=== PATIENT | female | born 1980 | race Caucasian/White ===

== ENCOUNTER → 2016-07-16 | Outpatient (CLI) | payer BC ==
[~2016-07-16] MED LIST: CHOLCAP5 PO; CYCL10TA6 PO; LACT1CAP6 PO; LEVO112T2 PO; LEVO125T5 PO; METH4PAK PO; OMEG10007 PO; VALA500T60 PO
== END | disposition home or self-care (01) ==
LOC: C.LABSPEC 13:51
PROVIDERS: ATTEND Physician Assistant
DX: L29.8 Other pruritus (principal)

== ENCOUNTER 2016-10-19 23:52 | Emergency (ER) | payer BC ==
[~2016-10-19] VITALS: Ht 162.6 cm; Wt 75.9 kg
[~2016-10-19 23:52] MED LIST changes: -CYCL10TA6 PO; -LEVO112T2 PO; +LEVO125T4 PO; -LEVO125T5 PO; -METH4PAK PO
[2016-10-19 23:56] VITALS: Ht 162.6 cm; Wt 75.9 kg
--- NOTE | 2016-10-20 00:17 | EMERGENCY ROOM VISIT NOTE ---
History Report prepared by Arabellaibbibi: Maribel Bruce Under the Supervision of: Dr. Ingris Sherwood D.O. First contact with patient: 00:00 Chief Complaint: CARDIAC ASSESSMENT Stated Complaint: CHEST PAIN, DIZZINESS History of Present Illness The patient is a 35 year old female who presents to the Emergency Room with complaints of intermittent chest pain that started approximately 90 minutes prior to arrival. She reports the pain woke her from sleep and rates her discomfort as a 2/10. She notes she has been feeling "off" and generally fatigued for the past few days. She states she started experiencing intermittent , infrequent chest pain in May 2016, and then experienced the chest pain again in August 2016. The pain would last for approximately 2 hours then subside. She denies any recent increased stress in her life. 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 She denies eating anything unusual recently. She notes her father underwent quadruple bypass surgery when he was 50 years old. The patient also admits to intermittent episodes of dizziness and back pain that radiates up into her neck. She has undergone a breast reduction surgery in the past and states back pain is unusual for her after undergoing the surgery. The dizziness can be so severe that it makes her feel like she is going to "pass out", but she states she has never experienced any syncopal episodes. The patient denies any history of anxiety. She also denies any abdominal pain, leg cramping or swelling. Source of History: patient Onset: 90 minutes PLAN NURSE Position: chest Symptom Intensity: 2/10 Timing: intermittent Associated Symptoms: + neck pain, + back pain, + fatigue, No abdominal pain Review of Systems See HPI for pertinent positives & negatives. A total of 10 systems reviewed and were otherwise negative. Past Medical & Surgical Medical Problems: (1) Bleeding from vagina Surgical Problems: (1) History of bilateral breast reduction surgery Family History CHF (congestive heart failure) Heart disease Social History Smoking Status: Never Smoker Smokeless Tobacco Use: No Alcohol Use: none Drug Use: none Marital Status: Housing Status: lives with family Occupation Status: employed Current/Historical Medications Scheduled Cholecalciferol (Vitamin D3), 5,000 INTER.UNIT PO DAILY Fish Oil ([place]-3), 1 CAP PO BID Levothyroxine Sodium (Synthroid), 112 MCG PO DAILY Valacyclovir (Valtrex), 500 MG PO DAILY Allergies Coded Allergies: Oxycodone (Verified Allergy, Unknown, 10/20/16) Codeine (Verified Adverse Reaction, Mild, NAUSEA, 10/20/16) Physical Exam Vital Signs Date Time Temp Pulse Resp B/P (MAP) Pulse Ox O2 Delivery O2 Flow Rate FiO2 10/20/16 02:58 77 18 108/63 97 10/20/16 02:00 73 18 114/73 97 Room Air 10/20/16 00:25 85 10/19/16 23:56 90 20 139/93 100 Room Air Physical Exam HEENT: Head - normocephalic and atraumatic Pupils are equal, round, and reactive to light. Extraocular eye muscles are intact, and sclera are anicteric. Nose - moist nasal mucosa without discharge. Mouth - moist buccal mucosa. Oropharynx is nonerythematous and there is no tonsillar exudate or edema noted. Neck: Supple; no JVD, nuchal rigidity, cervical lymphadenopathy. Heart: Regular rate and rhythm. There is a normal S1 and S2 with no murmurs, clicks, or gallops appreciated. Lungs: Clear to auscultation bilaterally with no wheezes, rales, or rhonchi. Abdomen: Soft, completely nontender, nondistended, with good bowel sounds. There are no palpable pulsatile masses or hepatosplenomegaly. There is no guarding, rigidity, or rebound noted. Extremities: No evidence of cyanosis, clubbing, or edema. There are easily palpable peripheral pulses. Skin: warm and dry with good turgor and no rashes. Medical Decision & Procedures ER Provider Diagnostic Interpretation: Radiology results as stated below per my review: CHEST X-RAY Narrow mediastinum, no pneumothorax, no pulmonary pathology. Laboratory Results 10/20/16 00:30 Red Blood Count 4.58, Mean Corpuscular Volume 85.2, Mean Corpuscular Hemoglobin 28.8, Mean Corpuscular Hemoglobin Concent 33.8, Mean Platelet Volume 10.0, Neutrophils (%) (Auto) 48.7, Lymphocytes (%) (Auto) 43.1, Monocytes (%) (Auto) 5.6, Eosinophils (%) (Auto) 2.1, Basophils (%) (Auto) 0.3, Neutrophils # (Auto) 4.31, Lymphocytes # (Auto) 3.83, Monocytes # (Auto) 0.50, Eosinophils # (Auto) 0.19, Basophils # (Auto) 0.03 10/20/16 00:30 Test 10/20/16 00:30 10/20/16 01:55 White Blood Count 8.88 K/uL (4.8-10.8) Red Blood Count 4.58 M/uL (4.2-5.4) Hemoglobin 13.2 g/dL (12.0-16.0) Hematocrit 39.0 % (37-47) Mean Corpuscular Volume 85.2 fL (80-100) Mean Corpuscular Hemoglobin 28.8 pg (25-34) Mean Corpuscular Hemoglobin Concent 33.8 g/dl (32-36) Platelet Count 262 K/uL (130-400) Mean Platelet Volume 10.0 fL (7.4-10.4) Neutrophils (%) (Auto) 48.7 % Lymphocytes (%) (Auto) 43.1 % Monocytes (%) (Auto) 5.6 % Eosinophils (%) (Auto) 2.1 % Basophils (%) (Auto) 0.3 % Neutrophils # (Auto) 4.31 K/uL (1.4-6.5) Lymphocytes # (Auto) 3.83 K/uL (1.2-3.4) Monocytes # (Auto) 0.50 K/uL (0.11-0.59) Eosinophils # (Auto) 0.19 K/uL (0-0.5) Basophils # (Auto) 0.03 K/uL (0-0.2) RDW Standard Deviation 40.3 fL (36.4-46.3) RDW Coefficient of Variation 13.0 % (11.5-14.5) Immature Granulocyte % (Auto) 0.2 % Immature Granulocyte # (Auto) 0.02 K/uL (0.00-0.02) Anion Gap 10.0 mmol/L (3-11) Est Creatinine Clear Calc Drug Dose 84.5 ml/min Estimated GFR () 93.4 Estimated GFR (Non- 80.6 BUN/Creatinine Ratio 14.7 (10-20) Calcium Level 8.7 mg/dl (8.5-10.1) Total Bilirubin 0.4 mg/dl (0.2-1) Aspartate Amino Transf (AST/SGOT) 17 U/L (15-37) Alanine Aminotransferase (ALT/SGPT) 26 U/L (12-78) Alkaline Phosphatase 66 U/L (45-117) Total Creatine Kinase 92 U/L (26-192) Creatine Kinase MB < 0.5 ng/ml (0.5-3.6) Creatine Kinase MB Ratio (0-3.0) Total Protein 7.9 gm/dl (6.4-8.2) Albumin 4.2 gm/dl (3.4-5.0) Globulin 3.7 gm/dl (2.5-4.0) Albumin/Globulin Ratio 1.1 (0.9-2) Thyroid Stimulating Hormone (TSH) 4.200 uIu/ml (0.300-4.500) Troponin I < 0.015 ng/ml (0-0.045) Laboratory results per my review. ECG Indication: chest pain Rate (beats per minute): 80 Rhythm: normal sinus (normal sinus rhythm) Findings: no acute ischemic change, no ectopy ED Course 0005: Past medical records reviewed. The patient was evaluated in room B3B. A complete history and physical exam was performed. A twelve-lead EKG was obtained. An IV lock was initiated and labs are drones above. 0130: I reevaluated the patient. She is still symptom free. 0230: The patients second troponin was negative. 0237: I reevaluated the patient. She is feeling much better. I discussed her results and discharge instructions and she verbalized complete understanding and agreement. Medical Decision I attest that I have personally reviewed the patient's current medication list. Patient was found to have normal blood pressure on screening and does not require follow-up. The patient is a 35 year old female who presents to the ED with chest pain. The different diagnoses include: anxiety, GERD, PE, costochondritis, aortic dissection, pleurisy and cardiac ischemia. Lab results show: No leukocytosis, stable H&H, normal TSH and Glucose, normal renal function and LFT's, negative cardiac enzymes. This is a 35-year-old female patient who awoke from sleep with substernal chest pain and some left-sided neck pain. The patient does describe some upper back pain over the past couple weeks but has never had discomfort in her chest like this before. She has no associated shortness of breath or other GI symptoms. Shows a normal-appearing EKG and negative cardiac enzymes. Chest x-ray was unremarkable. We spent some time talking about the possible causes of her chest discomfort. I have asked her to follow up close with her PCP in the next 2 days at the chest discomfort or fatigue persists. If she develops worsening chest discomfort or shortness of breath, she was directed to return here to the ER. Impression Primary Impression: Substernal chest pain Scribe Attestation The scribe's documentation has been prepared under my direction and personally reviewed by me in its entirety. I confirm that the note above accurately reflects all work, treatment, procedures, and medical decision making performed by me. Departure Information Dispostion Home / Self-Care Referrals Abby Edmonds (PCP) Patient Instructions ED Chest Pain Atypical Unkn Cause, My [facility] Additional Instructions Rest. Limit strenuous activity. Return to the ER if you develop worsening chest pain or shortness of breath. Follow up with PCP if symptoms continue
[2016-10-20 00:38] LABS: BASO % 0.3 %; BASO ABS # 0.03 K/uL (0-0.2); COMPLETE YES; EOS % 2.1 %; IG% 0.2 %; LYMPH % 43.1 %; LYMPH ABS # 3.83 K/uL (1.2-3.4); MEAN CELL VOLUME 85.2 fL (80-100); MEAN CORPUSCULAR HEMOGLOBIN 28.8 pg (25-34); MEAN CORPUSCULAR HGB CONC 33.8 g/dl (32-36); MONO % 5.6 %; NEUT % 48.7 %; PLATELET COUNT 262 K/uL (130-400); RED BLOOD COUNT 4.58 M/uL (4.2-5.4); WHITE BLOOD COUNT 8.88 K/uL (4.8-10.8)
[2016-10-20] MEDS ORDERED: LEVO112T2 PO (00:47)
[2016-10-20 01:08] LABS: ALT/SGPT 26 U/L (12-78); AST/SGOT 17 U/L (15-37); BLOOD UREA NITROGEN 13 mg/dl (7-18); BUN/CREATININE RATIO 14.7 (10-20); CALCIUM 8.7 mg/dl (8.5-10.1); CARBON DIOXIDE 24 mmol/L (21-32); CHLORIDE 107 mmol/L (98-107); CREATININE 0.91 mg/dl (0.60-1.20); GLUCOSE 88 mg/dl (70-99); POTASSIUM 3.5 mmol/L (3.5-5.1); SODIUM 141 mmol/L (136-145)
[2016-10-20 01:19] LABS: ALB/GLOB RATIO 1.1 (0.9-2); ALKALINE PHOSPHATASE 66 U/L (45-117)
[2016-10-20 02:58] VITALS: BP 108/63; PULSE 77; O2SAT 97
--- NOTE | 2016-10-20 06:32 | DIAGNOSTIC IMAGING REPORT ---
CHEST 2 VIEWS ROUTINE CLINICAL HISTORY: chest pain and neck pain COMPARISON STUDY: 01/11/2014 FINDINGS: The bones soft tissues and hemidiaphragms are normal. The cardiomediastinal silhouette is normal. The lungs are clear. The pulmonary vasculature is normal. IMPRESSION: Negative chest. Electronically signed by: Nilton Moya M.D. 10/20/2016 6:31 AM Dictated Date/Time: 10/20/2016 6:30 AM
== END 2016-10-20 02:58 | disposition home or self-care (01) ==
LOC: C.EDB 23:53
DX: R07.2 Precordial pain (principal); Z82.49 Family history of ischemic heart disease and other diseases of the circulatory system; Z79.899 Other long term (current) drug therapy

== ENCOUNTER 2016-12-20 16:58 | Emergency (ER) | payer BC, OTHER ==
[~2016-12-20] VITALS: Ht 162.6 cm; Wt 65.6 kg
[~2016-12-20 16:58] MED LIST changes: -LACT1CAP6 PO; +LEVO112T2 PO; -LEVO125T4 PO
[2016-12-20 17:04] VITALS: TEMP 36.6; Ht 162.6 cm; Wt 65.6 kg
[2016-12-20] MEDS ORDERED: KETOROLAC TROMETHAMINE 60 MG/2 ML VIAL IM STA (17:29)
[2016-12-20] MEDS ORDERED: CYCLOBENZAPRINE HCL 10 MG TAB PO STA (17:29)
--- NOTE | 2016-12-20 18:02 | DIAGNOSTIC IMAGING REPORT ---
L-SPINE MIN 4 VIEWS ROUTINE HISTORY: Trauma. Pain. LEFT LOW BACK PAIN INTO LEFT LEG COMPARISON: None. FINDINGS: There is no fracture. No subluxation. Disc spaces are preserved. IMPRESSION: No fracture or subluxation within the lumbar spine. The above report was generated using voice recognition software. It may contain grammatical, syntax or spelling errors. Electronically signed by: Nilton Moya M.D. 12/20/2016 6:01 PM Dictated Date/Time: 12/20/2016 6:01 PM
[2016-12-20] MEDS ORDERED: METH4PAK PO (18:41)
[2016-12-20] MEDS ORDERED: CYCL10TA6 PO (18:41)
--- NOTE | 2016-12-20 18:42 | EMERGENCY ROOM VISIT NOTE ---
ED Visit Note First contact with patient: 17:11 CHIEF COMPLAINT: Low back pain 2 weeks HISTORY OF PRESENT ILLNESS: Patient is a 28 year-old white female who presents to the emergency department for evaluation of low back pain. She states her symptoms started about 2 weeks ago with mild, tolerable right sided low back pain. She then had a mechanical fall when she slipped on some of her daughter' s clothing, landing on her left hip and buttocks. She states that she developed a bruise on the lateral aspect of her hip, then subsequently developed some pain in her left low back. In the last week, the left low back pain has worsened. She describes pain in her left low back that wraps around to her left thigh. She occasionally noticed bilateral groin pain. Initially the pain was better when she was standing upright and walking, and worse when she flexed, but in the last couple of days she has noticed that any type of movement has become more painful. She has tried ice, heat, ibuprofen and chiropractic manipulation. She presently rates her discomfort a 7/10. She denies any numbness, tingling or weakness that radiated into her legs. No bowel or bladder incontinence or saddle anesthesias. She denies any nausea, vomiting or abdominal pain. No urinary symptoms. Last menstrual period was 2 weeks ago. REVIEW OF SYSTEMS: Review of systems as per HPI. All other systems reviewed were negative. 10 systems reviewed. PMH: Electronic medical records are reviewed and summarized as above/below. See Problem List. SOCIAL HISTORY: Patient lives at home with her daughter. 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 Nonsmoker. PHYSICAL EXAM: Vital Signs: Reviewed Nurse's notes. CONSTITUTIONAL: Patient is a pleasant, well-appearing 36-year-old white female who is awake and alert and laying on the gurney in mild distress due to her back pain. Her family is at the bedside. There is mild discomfort with position changes. CARDIOVASCULAR: Regular rate and rhythm. Peripheral pulses easily palpable. RESPIRATORY: Breath sounds equal and clear to auscultation without wheezes, rales, or rhonchi heard. Full and equal chest expansion without accessory muscle use or retractions. ABDOMEN: Bowel sounds are present. Abdomen is soft, nontender and nondistended. INTEGUMENTARY: No lesions or rash, normal skin turgor. LYMPH: No lymphadenopathy. SPINE: Examination of the patient's back does not demonstrate any ecchymosis, abrasions or outward signs of trauma. No erythema, increased warmth or induration. Patient has no midline discomfort to palpation over the lumbar spinous processes. There is no pain over the paraspinous musculature, no spasm. She does have some reproducible discomfort over the left PSIS. There is no pain over the SI joint or the sciatic notch. She has increased pain with range of motion including rotation and flexion. EXTREMITIES: Leg lengths are symmetrical. Negative logroll bilaterally. Normal strength including dorsi-flexion and plantar flexion of the great toes and ankles and flexion and extension of the knees and flexion of the hips. Negative bilateral straight leg raise testing. Lower extremity DTRs are equal and symmetrical bilaterally. Distal pulses are easily palpable. Sensation light touch is intact over the lower extremities bilaterally. EMERGENCY DEPARTMENT COURSE: The patient was seen and assessed as above. Her old records were reviewed. She is medicated with Toradol 60 mg orally and Flexeril 10 mg orally. She reports that she does not tolerate narcotics well. Lumbar spine x-rays were obtained and were fairly unremarkable. On reassessment , she reported slight relief of her discomfort, was able to move around on the gurney with more ease. She rated her pain a 4/10 at discharge. X-ray findings were reviewed with the patient. Conservative care measures were discussed. She was encouraged to continue ibuprofen and was given a prescription for Flexeril. She declined narcotics. She was also given a prescription for a Medrol Dosepak that she can try if she is not improving, she prefers the NSAID first, which is reasonable. Physical exam is not consistent with acute cord compression or cauda equina syndrome. I do not suspect epidural abscess, hematoma or neurovascular compromise. The patient was encouraged to follow up with her primary care provider for further care and evaluation if her symptoms are not improving. The patient was discharged home in good condition with her family. Medication reconciliation: I attest that I have personally reviewed the patient' s current medication list. Blood pressure screening : Patient was found to have normal blood pressure on screening and does not require follow-up. Patient was reviewed in the [facility] Prescription Drug Monitoring Program, and there were no red flags noted. L-SPINE MIN 4 VIEWS ROUTINE HISTORY: Trauma. Pain. LEFT LOW BACK PAIN INTO LEFT LEG COMPARISON: None. FINDINGS: There is no fracture. No subluxation. Disc spaces are preserved. IMPRESSION: No fracture or subluxation within the lumbar spine. Problem List Medical Problems: (1) Bleeding from vagina Status: Resolved (2) Hypothyroidism Nos Status: Chronic (3) Left leg pain Status: Resolved (4) Left leg pain Status: Resolved (5) Paresthesias Status: Resolved (6) Substernal chest pain Status: Resolved (7) Tick bite Status: Resolved Surgical Problems: (1) History of bilateral breast reduction surgery Status: Resolved (2) History of section Status: Resolved (3) History of melanoma excision Status: Resolved (4) History of thyroidectomy Status: Resolved (5) History of tonsillectomy Status: Resolved (6) History of wisdom tooth extraction Status: Resolved Current/Historical Medications Scheduled Cholecalciferol (Vitamin D3), 5,000 INTER.UNIT PO DAILY Levothyroxine Sodium (Synthroid), 112 MCG PO DAILY Methylprednisolone (Medrol Dosepak), 0 PO DAILY Valacyclovir (Valtrex), 500 MG PO DAILY Scheduled PRN Cyclobenzaprine Hcl (Flexeril), 10 MG PO TID PRN for Muscle Spasms Allergies Coded Allergies: Oxycodone (Verified Allergy, Unknown, 10/20/16) Codeine (Verified Adverse Reaction, Mild, NAUSEA, 10/20/16) Vital Signs Date Time Temp Pulse Resp B/P (MAP) Pulse Ox O2 Delivery O2 Flow Rate FiO2 12/20/16 19:30 86 15 131/94 98 12/20/16 17:04 36.6 96 20 135/85 98 Room Air Medications Administered Medications (Trade) Dose Ordered Sig/Regan Route Start Time Stop Time Status Last Admin Dose Admin Ketorolac Tromethamine (Toradol Inj) 60 mg NOW STAT IM 12/20/16 17:29 12/20/16 17:30 DC 12/20/16 17:39 60 MG Cyclobenzaprine HCl (Flexeril Tab) 10 mg NOW STAT PO 12/20/16 17:29 12/20/16 17:30 DC 12/20/16 17:38 10 MG Departure Information Impression Primary Impression: Low back pain Prescriptions Methylprednisolone (MEDROL DOSEPAK) 4 Mg Avtar 0 PO DAILY, #1 PKT Once daily as directed Prov: Nida Calvo PA 12/20/16 Cyclobenzaprine Hcl (FLEXERIL) 10 Mg Tab 10 MG PO TID Y for Muscle Spasms, #30 TAB Prov: Nida Calvo PA 12/20/16 Referrals Abby Edmonds (PCP) Patient Instructions My [facility] Additional Instructions DO NOT drive, drink alcohol, operate machinery, or perform dangerous activities today. You were given medications in the ER that can affect your ability to safely function or operate a vehicle. Medrol Dosepak: Once daily until the prescription is finished. It is best to take this earlier in the day as some patients note occasional difficulty falling asleep when taken in the late evening. Do not take ibuprofen and Medrol Dosepak concurrently. Ibuprofen(Motrin, Advil) may be used for fever or pain. Use 800 mg 3 times daily with food. Avoid using more than 2400mg in a 24 hour period. Do not use 2400mg per day for more than three consecutive days without physician direction. Prolonged inappropriate use can lead to stomach upset or ulcers. This medication can be taken if you need to drive, work, or perform activities which may be dangerous when taking narcotic pain medication. (AND/OR) Acetaminophen(Tylenol) may be used for fever or pain. Use 1000mg every six hours as needed. Avoid using more than 3000mg in a 24 hour period. This medication can be taken if you need to drive, work, or perform activities which may be dangerous when taking narcotic pain medication. Cyclobenzaprine (Flexeril) 10 mg: Take 1 pills 3 times daily as needed for muscle spasms.. Avoid alcohol, operating machinery or dangerous equipment, working on ladders or roofs, DRIVING, or situations where being under the influence may be dangerous. Rest and avoid heavy lifting until your symptoms resolve and then gradually return to full activity. A good rule of thumb is if it hurts your back to perform a certain activity, then it should be avoided until you are healthy again. A heating pad, warm compresses, or a hot shower may help with tight muscles and can be done several times a day as needed. Continue current medications. Return to the ER immediately for any numbness, tingling, severe pain, loss of control of your bowels or bladder, inability to walk, or as needed. Follow up with your primary care physician within 3-5 days for a recheck of your current condition.
[2016-12-20 19:30] VITALS: BP 131/94; PULSE 86; O2SAT 98
== END 2016-12-20 19:30 | disposition home or self-care (01) ==
LOC: C.EDB 16:59 → C.EDD 19:30
DX: M54.5 Low back pain (principal); W01.0XXA Fall on same level from slipping, tripping and stumbling without subsequent striking against object, initial encounter; Y92.9 Unspecified place or not applicable; E03.9 Hypothyroidism, unspecified; Z79.899 Other long term (current) drug therapy

== ENCOUNTER → 2017-01-12 | Outpatient (CLI) | payer OTHER ==
[~2017-01-12] MED LIST changes: -OMEG10007 PO
== END | disposition home or self-care (01) ==
LOC: C.PAPS 13:47
PROVIDERS: ATTEND Obstetrics & Gynecology
DX: Z12.4 Encounter for screening for malignant neoplasm of cervix (principal); R87.610 Atypical squamous cells of undetermined significance on cytologic smear of cervix (ASC-US)

== ENCOUNTER → 2017-01-31 | Outpatient (CLI) | payer OTHER ==
[2017-01-31 18:05] LABS: THYROID STIMULATING HORMONE 0.878 uIu/ml (0.300-4.500)
== END | disposition home or self-care (01) ==
LOC: C.LAB1850 16:44
PROVIDERS: ATTEND Internal Medicine Endocrinology, Diabetes & Metabolism
DX: E03.9 Hypothyroidism, unspecified (principal); R10.9 Unspecified abdominal pain; R20.2 Paresthesia of skin; E83.51 Hypocalcemia